=== PATIENT | male | born 1985 | race Caucasian/White ===

== ENCOUNTER 2017-07-01 11:28 | Emergency (ER) | payer BC ==
[~2017-07-01] VITALS: Ht 188 cm; Wt 88.5 kg
[~2017-07-01 11:28] MED LIST: ACCUNEB SO1.25 MG/1 INH; NORCO 5-325 TA1 EACH PO; SINGULAIR 10 MG10 M1 PO; SONATA10 MG PO
[2017-07-01 11:29] VITALS: BP 127/85
[2017-07-01] MEDS ORDERED: MOBIC15 MG PO (12:02)
[2017-07-01] MEDS ORDERED: SENNA8.6 MG PO (12:02)
[2017-07-01] MEDS ORDERED: NORCO 5-325 TA1 EACH PO (12:59)
== END 2017-07-01 12:50 | disposition home or self-care (01) ==
LOC: ER 11:28
DX: S62.306A Unspecified fracture of fifth metacarpal bone, right hand, initial encounter for closed fracture (principal); J45.909 Unspecified asthma, uncomplicated; F10.99 Alcohol use, unspecified with unspecified alcohol-induced disorder; F15.10 Other stimulant abuse, uncomplicated; Z88.0 Allergy status to penicillin; W22.03XA Walked into furniture, initial encounter; Y93.89 Activity, other specified; Y92.89 Other specified places as the place of occurrence of the external cause; Y99.8 Other external cause status

== ENCOUNTER 2017-11-20 20:58 | Emergency (ER) | payer BC ==
[~2017-11-20] VITALS: Ht 188 cm; Wt 90.7 kg
[~2017-11-20 20:58] MED LIST changes: +MOBIC15 MG PO; +SENNA8.6 MG PO
[2017-11-20 21:37] LABS: ABSOLUTE NEUTROPHILS 7.4 thou/uL (1.4-8.2); BASOPHILS 0.6 % (0.0-2.0); EOSINOPHILS 0.4 % (0.0-3.0); HEMATOCRIT 44.6 % (42.0-52.0); HEMOGLOBIN 15.2 gm/dL (14.0-18.0); LYMPHOCYTES 32.4 % (24.0-44.0); MCH 29.5 pg (26.0-34.0); MCV 86.7 fL (80.0-100.0); PLATELET COUNT 428 thou/uL (150-400); POLYS 57.6 % (36.0-66.0); RBC 5.15 mil/uL (4.50-6.00); WBC 12.9 thou/uL (4.0-11.0)
[2017-11-20 21:38] LABS: MANUAL DIFF NO
[2017-11-20 21:41] LABS: CALCIUM 9.4 mg/dL (8.5-10.1); POTASSIUM 4.1 mmol/L (3.5-5.1)
[2017-11-20 21:56] LABS: TOTAL BILIRUBIN 0.6 mg/dL (<0.1-1.0); TOTAL PROTEIN 8.1 g/dL (6.4-8.2)
[2017-11-20 22:18] LABS: URINE BILIRUBIN NEGATIVE (Negative); URINE BLOOD NEGATIVE (Negative); URINE COLOR YELLOW; URINE GLUCOSE-RANDOM* NEGATIVE (Negative); URINE KETONES NEGATIVE (Negative); URINE LEUKOCYTES-REFLEX NEGATIVE (Negative); URINE PROTEIN (DIPSTICK) NEGATIVE (Negative); URINE SPECIFIC GRAVITY 1.015 (1.005-1.035)
[2017-11-20] MEDS ORDERED: LEVSIN0.125 MG PO (23:02)
[2017-11-20] MEDS ORDERED: HYDROCODONE-AP1 EAC6 PO (23:02)
[2017-11-20] MEDS ORDERED: ONDANSETRON HCL4 M2 PO (23:02)
[2017-11-20 23:04] VITALS: BP 122/73
== END 2017-11-20 23:12 | disposition home or self-care (01) ==
LOC: ER 20:58
PROVIDERS: Emergency Medicine
DX: R10.33 Periumbilical pain (principal); R10.13 Epigastric pain; D72.829 Elevated white blood cell count, unspecified; R11.2 Nausea with vomiting, unspecified; J45.909 Unspecified asthma, uncomplicated; Z88.0 Allergy status to penicillin

== ENCOUNTER 2018-09-11 16:37 | Emergency (ER) | payer OTHER ==
[~2018-09-11] VITALS: Ht 188 cm; Wt 90.7 kg
[~2018-09-11 16:37] MED LIST changes: +HYDROCODONE-AP1 EAC6 PO; +LEVSIN0.125 MG PO; +ONDANSETRON HCL4 M2 PO
[2018-09-11] MEDS ORDERED: ACCUNEB SO1.25 MG/1 INH (17:21)
[2018-09-11] MEDS ORDERED: SINGULAIR 10 MG10 M1 PO (17:22)
[2018-09-11] MEDS ORDERED: DULERA 200 MCG/13 GM INH (17:23)
[2018-09-11] MEDS ORDERED: DOXYCYCLINE 10100 MG PO (18:40)
[2018-09-11] MEDS ORDERED: ULTRAM 50MG TAB50 MG PO (18:40)
[2018-09-11] MEDS ORDERED: IBUPROFEN 600600 M1 PO (18:40)
[2018-09-11 18:58] VITALS: BP 112/67
== END 2018-09-11 18:59 | disposition home or self-care (01) ==
LOC: ER 16:37
DX: L72.3 Sebaceous cyst (principal); J45.909 Unspecified asthma, uncomplicated; Z88.0 Allergy status to penicillin

== ENCOUNTER 2019-08-27 11:58 | Emergency (ER) | payer BC ==
[~2019-08-27] VITALS: Ht 188 cm; Wt 90.7 kg
[~2019-08-27 11:58] MED LIST changes: +DOXYCYCLINE 10100 MG PO; +DULERA 200 MCG/13 GM INH; +IBUPROFEN 600600 M1 PO; +ULTRAM 50MG TAB50 MG PO
[2019-08-27 12:16] LABS: URINE BLOOD NEGATIVE (Negative); URINE CLARITY CLEAR; URINE COLOR YELLOW; URINE GLUCOSE-RANDOM* NEGATIVE (Negative); URINE KETONES NEGATIVE (Negative); URINE LEUKOCYTES-REFLEX NEGATIVE (Negative); URINE NITRITE-REFLEX NEGATIVE (Negative); URINE PROTEIN (DIPSTICK) 2+ (Negative); URINE UROBILINOGEN 0.2 E.U./dl (0.2-1.0)
[2019-08-27 12:17] LABS: ICTOTEST (BILI CONFIRMATORY) Negative (Negative); URINE BILIRUBIN NEGATIVE (Negative)
[2019-08-27 12:25] LABS: CASTS None Seen /LPF (None Seen); MUCUS 4-6 Moderate strn/LPF (None Seen); SQUAMOUS 0-3 Few /LPF (0-3)
[2019-08-27 12:26] LABS: BACTERIA-REFLEX 1-9 Few /HPF (None Seen); CRYSTALS None Seen /LPF (None Seen); URINE RBC 0-2 Rare /HPF (0-2); URINE WBC-REFLEX None Seen /HPF (0-5)
[2019-08-27 12:40] LABS: ABSOLUTE NEUTROPHILS 5.9 thou/uL (1.4-8.2); BASOPHILS 0.4 % (0.0-2.0); EOSINOPHILS 0.7 % (0.0-3.0); HEMATOCRIT 45.6 % (42.0-52.0); HEMOGLOBIN 15.5 gm/dL (14.0-18.0); LYMPHOCYTES 22.2 % (24.0-44.0); MCH 30.2 pg (26.0-34.0); MCHC 34.1 g/dL (28.0-37.0); MCV 88.7 fL (80.0-100.0); MONOCYTES 11.6 % (1.0-8.0); PLATELET COUNT 410 thou/uL (150-400); POLYS 65.1 % (36.0-66.0); RBC 5.13 mil/uL (4.50-6.00); RDW 13.7 % (10.5-14.5); WBC 9.1 thou/uL (4.0-11.0)
[2019-08-27 12:47] LABS: CALCIUM 9.7 mg/dL (8.5-10.1); CREATININE 1.1 mg/dL (0.7-1.3); POTASSIUM 3.8 mmol/L (3.5-5.1)
[2019-08-27 12:54] LABS: ALBUMIN 3.9 g/dL (3.4-5.0); TOTAL BILIRUBIN 0.5 mg/dL (<0.1-1.0); TOTAL PROTEIN 7.6 g/dL (6.4-8.2)
[2019-08-27 13:24] LABS: AMP/METHAMP Negative (Negative); BARBITURATES Negative (Negative); BENZODIAZEPINES Negative (Negative); COCAINE POSITIVE (Negative); METHADONE Negative (Negative); OPIATES Negative (Negative); PCP Negative (Negative)
[2019-08-27] MEDS ORDERED: ZOFRAN ODT4 MG PO (14:16)
[2019-08-27] MEDS ORDERED: BENTYL 20 MG TA20 M1 PO (14:16)
[2019-08-27 14:55] VITALS: BP 118/65
== END 2019-08-27 14:53 | disposition home or self-care (01) ==
LOC: ER 11:58
PROVIDERS: Emergency Medicine
DX: R11.2 Nausea with vomiting, unspecified (principal); R10.13 Epigastric pain; J45.909 Unspecified asthma, uncomplicated; Z88.0 Allergy status to penicillin